=== PATIENT | female | born 1955 | race Caucasian/White ===

== ENCOUNTER 2024-02-21 03:11 | Emergency (ER) | payer MEDICARE, OTHER ==
[~2024-02-21] VITALS: Ht 162.6 cm; Wt 61.7 kg
[2024-02-21 03:19] VITALS: BP 181/76; PULSE 71; RESP 16; TEMP 97.6; O2SAT 99
[2024-02-21] MEDS ORDERED: LIDOCAINE 1% VIAL ONE (03:33)
[2024-02-21] MEDS ORDERED: CLIN-109 PO (04:05)
[2024-02-21] MEDS ORDERED: CLEOCIN ONE (04:07)
[2024-02-21] MEDS: CLEOCIN PO STA (04:08)
[2024-02-21 04:09] VITALS: BP 148/83; PULSE 65; RESP 16; O2SAT 97
== END 2024-02-21 04:12 | disposition home or self-care (01) ==
LOC: ER 03:11
DX: L02.511 Cutaneous abscess of right hand (principal); I10 Essential (primary) hypertension; Z85.9 Personal history of malignant neoplasm, unspecified; Z90.49 Acquired absence of other specified parts of digestive tract; Z90.710 Acquired absence of both cervix and uterus
CPT/HCPCS: 99284; 26010; 73140; J2001; J8499; 99283

== ENCOUNTER 2025-06-29 11:27 | Emergency (ER) | payer MEDICARE, OTHER ==
[~2025-06-29] VITALS: Ht 162.6 cm; Wt 59.0 kg
[~2025-06-29 11:27] MED LIST: CLIN-109 PO
[2025-06-29 11:35] VITALS: BP 122/66; PULSE 68; RESP 18; TEMP 98.5; O2SAT 98
[2025-06-29] MEDS ORDERED: ROBAXIN PO ONE (11:53)
[2025-06-29] MEDS ORDERED: TORADOL ONE (11:53)
[2025-06-29] MEDS ORDERED: LIDODERM TP ONE (11:53)
[2025-06-29] MEDS: LIDODERM TP STA (11:57)
[2025-06-29] MEDS: TORADOL IM STA (11:57)
[2025-06-29] MEDS: ROBAXIN PO STA (11:57)
[2025-06-29 12:30] VITALS: BP 125/69; PULSE 74; RESP 18; O2SAT 97
[2025-06-29 12:37] LABS: LEUKOCYTE ESTERASE ,URINE TRACE (NEGATIVE); NITRATE,URINE NEGATIVE (NEGATIVE)
[2025-06-29 12:38] LABS: APPEARANCE,URINE CLEAR; UA COLOR YELLOW
[2025-06-29 13:38] VITALS: BP 121/61; PULSE 66; RESP 18; O2SAT 98
== END 2025-06-29 13:41 | disposition home or self-care (01) ==
LOC: ER 11:27
DX: M54.50 Low back pain, unspecified (principal); I10 Essential (primary) hypertension; Z90.49 Acquired absence of other specified parts of digestive tract; Z90.710 Acquired absence of both cervix and uterus
CPT/HCPCS: 99285; 74176; 96372; 87086; 81001; J1885